=== PATIENT | male | born 1990 | race Caucasian/White ===

== ENCOUNTER 2024-03-29 13:11 | Emergency (ER) | payer OTHER, SELFPAY ==
--- NOTE | 2024-03-29 13:37 | ED.GENMED ---
History of Present Illness
General
Chief Complaint: Social Service Referral
Source: patient
Time Seen by Provider: 03/29/24 13:26
History of Present Illness
History of Present Illness:
33-year-old male presenting to the emergency department with corrections officers from [facility] after patient has refused to eat or drink anything over at least 1 week. Patient noting he has some intermittent abdominal
discomfort and left ear pain but states he does not want any of this evaluated and does not want to be physically examined. Patient denies any suicidal ideation, homicidal ideations, auditory or visual hallucinations or any other concerns. He does
note that he has been taking his medications as he is supposed to be prescribed.
Past History
Past History
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
ED Past Surgical History: None
Patient has exhibited threatening behavior?: No
Social History
Tobacco: Smoker
Alcohol: Occasional
Drug: Former user
Personal: Single
Living: intermediate
Employment: Not employed
Family History
Family History: Unable to obtain
Review of Systems
Review of Systems
All Other Systems: ROS reviewed and negative except as documented in HPI and ROS
Phy Exam
Physical Exam
Physical Exam:
GENERAL: Alert , in no apparent distress
EYE: conjunctiva clear
Head: Normocephalic atraumatic
NECK: Supple
LUNGS: no acute respiratory distress
NEUROLOGICAL: Alert and oriented
SKIN: Warm and dry, skin intact.
MUSCULOSKELETAL: well perfused.
PSYCH: Normal and appropriate interaction.
Scores
Heart Failure Risk
Heart Failure Risk Score: Not Applicable
Heart Score for Chest Pain Patients
STEMI patient?: Not applicable
Withdrawal Assessment of Alcohol
Withdrawal Assessment Completed?: Not applicable
MDM/Problems Addressed
MDM/Problems Addressed:
33-year-old male presenting to the emergency department for evaluation after reported hunger strike for at least 1 week. Patient states he does not want any medical intervention at this time. Patient is able to make medical decisions for himself.
I contacted [facility] medical team and they will continue caring for the patient at the correctional facility.
*Pulse Oximetry
Patient hypoxic: no
*Critical Care Note
Total Time (30-74mins, 75-104mins- exclusive of procedures): Not Applicable
Patient Management
Discussion with other providers: Care Home staff
ED Attending Note
-
Portions of this chart may have been created with voice recognition software.� Occasional wrong word or��sound alike� substitutions may have occurred due to the inherent limitations of voice recognition software.
Discharge Plan
Departure
Patient Disposition: Care Home
Date of Disposition: 03/29/24
Time of Disposition: 13:37
Discharge Problem:
Medical clearance for incarceration
Prescriptions:
No Action
cyclobenzaprine 10 MG tablet
10 mg PO TIDPRN PRN (Reason: back spasms) Qty: 30 0RF
prednisone 50 MG tablet
50 mg PO DAILY Qty: 4 0RF
Referrals:
[facility] [Family Provider] -
Activity Restrictions/Additional Instructions:
Patient is medically cleared for incarceration
Interventions
Interventions:
*Risk Screen - Suicide Last Done: 03/29/24 13:17
*General Assessment Last Done: 03/29/24 13:17
*Neglect/Abuse Screening Last Done: 03/29/24 13:17
*ED COVID-19 Vaccine History Last Done: 03/29/24 13:17
*Nursing Disposition Last Done: 03/29/24 13:44
ED-Psychological Assessment Last Done: 03/29/24 13:22
Discharge Date and Time
Discharge Date/Time: 03/29/24 13:45
Print Language: SLOVAK
== END 2024-03-29 13:45 ==
LOC: EMR 13:11
PROVIDERS: EMERGENCY PHYSICIAN Emergency Medicine
DX: Z02.89 Encounter for other administrative examinations (principal); F17.200 Nicotine dependence, unspecified, uncomplicated
CPT/HCPCS: 99283

== ENCOUNTER 2024-04-05 13:11 | Emergency (ER) | payer OTHER, SELFPAY ==
--- NOTE | 2024-04-05 13:22 | ED.GENMED ---
History of Present Illness
General
Chief Complaint: Failure to Thrive
Source: patient
Exam Limitations: none
Time Seen by Provider: 04/05/24 13:15
History of Present Illness
History of Present Illness:
Patient sent from group home for being on a hunger strike. He has no complaints. He denies pain. He is refusing any care. He was about 1 week ago for the same.
Past History
Past History
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
ED Past Surgical History: None
Patient has exhibited threatening behavior?: No
Social History
Tobacco: Smoker
Alcohol: Occasional
Drug: Former user
Personal: Single
Living: group home
Employment: Not employed
Family History
Family History: Unable to obtain
Phy Exam
Physical Exam
Physical Exam:
General: Well-appearing male no acute respiratory distress
Neurologic exam: Alert conversing answering questions
MDM/Problems Addressed
Differential Diagnosis Includes:
Patient is of sound mind. He is refusing any medical care. He was sent in because he is on a hunger strike. At this point we cannot force any care or treatment on him. He will be discharged back to group home
*Critical Care Note
Total Time (30-74mins, 75-104mins- exclusive of procedures): Not Applicable
ED Attending Note
-
Portions of this chart may have been created with voice recognition software.� Occasional wrong word or��sound alike� substitutions may have occurred due to the inherent limitations of voice recognition software.
Discharge Plan
Departure
Patient Disposition: Penitentiary
Date of Disposition: 04/05/24
Time of Disposition: 13:23
Patient with high blood pressure during this ER visit?: No
Discharge Problem:
Medical clearance for incarceration
Prescriptions:
No Action
cyclobenzaprine 10 MG tablet
10 mg PO TIDPRN PRN (Reason: back spasms) Qty: 30 0RF
prednisone 50 MG tablet
50 mg PO DAILY Qty: 4 0RF
Referrals:
[facility] [Family Provider] -
Activity Restrictions/Additional Instructions:
You have refused any care. You are cleared to go back to group home
Interventions
Interventions:
*Risk Screen - Suicide Last Done: 04/05/24 13:21
*General Assessment Last Done: 04/05/24 13:15
*Neglect/Abuse Screening Last Done: 04/05/24 13:15
Discharge Date and Time
Print Language: MEXICAN
== END 2024-04-05 13:30 ==
LOC: EMR 13:11
PROVIDERS: EMERGENCY PHYSICIAN Student in an Organized Health Care Education/Training Program
DX: Z02.89 Encounter for other administrative examinations (principal); F17.200 Nicotine dependence, unspecified, uncomplicated; Z53.29 Procedure and treatment not carried out because of patient's decision for other reasons
CPT/HCPCS: 99281

== ENCOUNTER 2024-04-12 14:50 | Emergency (ER) | payer OTHER, SELFPAY ==
[2024-04-12 14:53] VITALS: BP 135/95
--- NOTE | 2024-04-12 15:18 | ED.GENMED ---
History of Present Illness
General
Chief Complaint: Failure to Thrive
Source: police
Exam Limitations: none
Time Seen by Provider: 04/12/24 15:00
Nursing documentation reviewed up to this point in time: agreed with
History of Present Illness
History of Present Illness:
33-year-old male past medical Struve anxiety presenting to the emergency department due to hunger strike from assisted. He has no complaints at this time claims that he felt like he might of fainted over the past 24 hours currently has no symptoms he
is refusing all testing did drink apple juice here. Heart rate normal pulse ox normal in no distress not clinically dehydrated was recommended for him to started and return for any worsening symptoms.
Past History
Past History
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
ED Past Surgical History: None
Patient has exhibited threatening behavior?: No
Social History
Tobacco: Smoker
Alcohol: Occasional
Drug: Former user
Personal: Single
Living: assisted
Employment: Not employed
Family History
Family History: Unable to obtain
Review of Systems
Review of Systems
Allergies reviewed?: Yes
All Other Systems: ROS reviewed and negative except as documented in HPI and ROS
Phy Exam
Physical Exam
Physical Exam:
GENERAL: Alert , in no apparent distress
EYE: pupils equal and reactive
NECK: Supple, no significant adenopathy.
ENT: o/p clr, mmm.
CARDIAC: Regular rate and rhythm .
LUNGS: Clear breath sounds bilaterally, no acute respiratory distress, no wheezes/rales/rhonchi
ABDOMEN: Soft, without focal tenderness, no r/g, no cvat
NEUROLOGICAL: Alert and oriented, no focal neuro deficits
SKIN: Warm and dry, skin intact.
MUSCULOSKELETAL: No edema, well perfused.
PSYCH: Normal and appropriate interaction.
Course
Vital Signs
Initial and Last Documented VS:
Initial Vital Signs
Temp Pulse Resp BP Pulse Ox
97.5 F 99 18 135/95 99
04/12/24 14:53 04/12/24 14:53 04/12/24 14:53 04/12/24 14:53 04/12/24 14:53
Last Documented Vital Signs
Temp Pulse Resp BP Pulse Ox
97.5 F 99 18 135/95 99
04/12/24 14:53 04/12/24 14:53 04/12/24 14:53 04/12/24 14:53 04/12/24 14:53
MDM/Problems Addressed
MDM/Problems Addressed:
33-year-old male presenting to the emergency department today due to lack of eating and drinking in assisted. Here vital signs are normal patient no distress no specific symptoms at this time physical physical examination without concerning features.
Patient was given apple juice here which she did drink. He did not eat while here. It was recommended start eating and drinking or he will become more sick but at this point does not look to have any life-threatening complications. Stable for
discharge to assisted was encouraged to return if symptoms worsen.
*Critical Care Note
Total Time (30-74mins, 75-104mins- exclusive of procedures): Not Applicable
ED Attending Note
-
Portions of this chart may have been created with voice recognition software.� Occasional wrong word or��sound alike� substitutions may have occurred due to the inherent limitations of voice recognition software.
Discharge Plan
Departure
Patient Disposition: Senior Care
Date of Disposition: 04/12/24
Time of Disposition: 15:22
Patient with high blood pressure during this ER visit?: No
Condition: Good
Covid-19: Not Applicable
Discharge Problem:
Anorexia
Prescriptions:
No Action
cyclobenzaprine 10 MG tablet
10 mg PO TIDPRN PRN (Reason: back spasms) Qty: 30 0RF
prednisone 50 MG tablet
50 mg PO DAILY Qty: 4 0RF
Activity Restrictions/Additional Instructions:
Marcus came to the emergency department today due to lack of eating and drinking.. Normal vital signs and normal basic examination. He did drink apple juice while here. Please have him return if symptoms worsen or progress.
Interventions
Interventions:
*Risk Screen - Suicide Last Done: 04/12/24 14:53
*General Assessment Last Done: 04/12/24 14:53
*Neglect/Abuse Screening Last Done: 04/12/24 14:53
*ED COVID-19 Vaccine History Last Done: 04/12/24 14:53
Discharge Date and Time
Print Language: FIJIAN
== END 2024-04-12 15:37 ==
LOC: EMR 14:50
PROVIDERS: EMERGENCY PHYSICIAN Emergency Medicine
DX: R63.0 Anorexia (principal); R62.7 Adult failure to thrive; F17.200 Nicotine dependence, unspecified, uncomplicated; F41.9 Anxiety disorder, unspecified
CPT/HCPCS: 99282

== ENCOUNTER 2024-04-26 20:05 | Emergency (ER) | payer OTHER, SELFPAY ==
[2024-04-26 20:08] VITALS: BP 131/85
[2024-04-26 20:13] VITALS: BMI 22.2
[2024-04-26 21:18] VITALS: BP 129/88
--- NOTE | 2024-04-26 21:55 | ED.GENMED ---
History of Present Illness
General
Chief Complaint: Failure to Thrive
Source: patient
Exam Limitations: none
Time Seen by Provider: 04/26/24 20:30
Nursing documentation reviewed up to this point in time: agreed with
History of Present Illness
History of Present Illness:
33-year-old male with past medical history of anxiety presenting to the emergency department today from the skilled nursing after having a hunger strike and not eating over the past few days according to skilled nursing staff. He denies any complaints at this time
he claims that he is not eating and drinking because they will not give him buprenorphine. He claims they are not giving this to him because his QTc was prolonged that he thinks the EKG machine was not working and that this is untrue.
Past History
Past History
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
ED Past Surgical History: None
Patient has exhibited threatening behavior?: No
Social History
Tobacco: Smoker
Alcohol: Occasional
Drug: Former user
Personal: Single
Living: skilled nursing
Employment: Not employed
Family History
Family History: Unable to obtain
Review of Systems
Review of Systems
Allergies reviewed?: Yes
All Other Systems: ROS reviewed and negative except as documented in HPI and ROS
Phy Exam
Physical Exam
Physical Exam:
GENERAL: Alert , in no apparent distress
EYE: pupils equal and reactive
NECK: Supple, no significant adenopathy.
ENT: o/p clr, mmm.
CARDIAC: Regular rate and rhythm .
LUNGS: Clear breath sounds bilaterally, no acute respiratory distress, no wheezes/rales/rhonchi
ABDOMEN: Soft, without focal tenderness, no r/g, no cvat
NEUROLOGICAL: Alert and oriented, no focal neuro deficits
SKIN: Warm and dry, skin intact.
MUSCULOSKELETAL: No edema, well perfused.
PSYCH: Normal and appropriate interaction.
Course
Vital Signs
Initial and Last Documented VS:
Initial Vital Signs
Temp Pulse Resp BP Pulse Ox
97.5 F 68 20 131/85 99
04/26/24 20:08 04/26/24 20:08 04/26/24 20:08 04/26/24 20:08 04/26/24 20:08
Last Documented Vital Signs
Temp Pulse Resp BP Pulse Ox
97.5 F 68 20 110/83 99
04/26/24 20:08 04/26/24 20:08 04/26/24 20:08 04/26/24 22:00 04/26/24 21:17
MDM/Problems Addressed
MDM/Problems Addressed:
Well-appearing 33-year-old male presenting after refusing to eat at present. He claims that he is not eating until he is given his buprenorphine doses or Sublocade. He claims that the reason he is not getting his medications is due to an isolated
event where his QTc was prolonged on EKG. It was offered to him that if we get an EKG that he would eat and drink. We performed an EKG here with normal QTc he ate entire meal and had a full cup of water. Patient no distress stable for discharge
return precautions given.
*Critical Care Note
Total Time (30-74mins, 75-104mins- exclusive of procedures): Not Applicable
ED Attending Note
-
Portions of this chart may have been created with voice recognition software.� Occasional wrong word or��sound alike� substitutions may have occurred due to the inherent limitations of voice recognition software.
Discharge Plan
Departure
Patient Disposition: Home (Routine Discharge)
Date of Disposition: 04/26/24
Time of Disposition: 21:56
Patient with high blood pressure during this ER visit?: No
Condition: Good
Covid-19: Not Applicable
Discharge Problem:
Anorexia
Prescriptions:
No Action
cyclobenzaprine 10 MG tablet
10 mg PO TIDPRN PRN (Reason: back spasms) Qty: 30 0RF
prednisone 50 MG tablet
50 mg PO DAILY Qty: 4 0RF
Referrals:
[facility] [Family Provider] -
Activity Restrictions/Additional Instructions:
You came to the emergency department today due to lack of oral intake. Here your vital signs are normal and your physical examination without concerning features. Your EKG had a normal QTc.
Interventions
Interventions:
*Risk Screen - Suicide Last Done: 04/26/24 20:08
*Neglect/Abuse Screening Last Done: 04/26/24 20:08
*ED COVID-19 Vaccine History Last Done: 04/26/24 20:08
*Nursing Disposition Last Done: 04/26/24 22:11
Discharge Date and Time
Discharge Date/Time: 04/26/24 22:12
Print Language: [place]IZ[place]
[2024-04-26 22:00] VITALS: BP 110/83
== END 2024-04-26 22:12 | disposition home or self-care (01) ==
LOC: EMR 20:05
PROVIDERS: EMERGENCY PHYSICIAN Emergency Medicine
DX: R63.0 Anorexia (principal); F41.9 Anxiety disorder, unspecified; F17.200 Nicotine dependence, unspecified, uncomplicated
CPT/HCPCS: 99283; 93005